=== PATIENT | female | born 1990 | race Two or more races ===

== ENCOUNTER 2018-11-25 17:00 | Emergency (ER) | payer MEDICAID, OTHER ==
[~2018-11-25] VITALS: Ht 165.1 cm; Wt 106.6 kg
[2018-11-25 18:08] LABS: Urine Bacteria NONE SEEN /hpf (None Seen); Urine Blood Negative /uL (Negative); Urine Mucus FEW (None Seen); Urine Specific Gravity 1.024 (1.001-1.035); Urine WBC 2 /hpf (0 - 5)
[2018-11-25 18:45] LABS: Basophils # (auto) 0 uL; Basophils % (auto) 0.5 % (0.0-2.0); Eosinophils # (auto) 0.1 uL; Eosinophils % (auto) 1.1 % (0.0-7.0); Hematocrit 41.2 % (36.0-46.0); Hemoglobin 13.9 g/dL (12.2-16.2); Lymphocytes # (auto) 1.6 uL; Lymphocytes % (auto) 19.4 % (10.0-50.0); Mean Corpuscular Hemoglobin 31.5 pg (28.0-32.0); Mean Corpuscular Hgb Conc. 33.6 g/dL (32.0-36.0); Mean Corpuscular Volume 93.5 fL (80.0-100.0); Monocytes # (auto) 0.4 uL; Monocytes % (auto) 5.2 % (0.0-12.0); Neutrophils # (auto) 6.3 uL; Neutrophils % (auto) 73.8 % (37.0-80.0); Platelet Count (auto) 245 10^3/uL (140-450); Red Blood Cells 4.41 10^6/uL (4.0-5.20); Red Cell Distribution Width 13.4 % (11.8-14.3); White Blood Cell 8.5 10^3/uL (4.4-10.8)
[2018-11-25 19:02] LABS: Albumin 3.3 g/dL (3.4-5.0); Calcium 8.7 mg/dL (8.5-10.1)
[2018-11-25 19:07] LABS: Bilirubin, Total 0.3 mg/dL (0.2-1.0); Total Protein 7.8 g/dL (6.4-8.2)
[2018-11-25] MEDS ORDERED: SODIUM CHLORIDE 0.9% 1,000 ML IV ONE (23:45)
[2018-11-26 01:51] VITALS: BP 126/83
== END 2018-11-26 04:07 | disposition home or self-care (01) ==
LOC: ER 17:07
DX: O99.611 Diseases of the digestive system complicating pregnancy, first trimester (principal); K29.70 Gastritis, unspecified, without bleeding; Z3A.01 Less than 8 weeks gestation of pregnancy
CPT/HCPCS: 36415; 76801; 76817; 80053; 81001; 83690; 84702; 85025; 96360; 99284; J7030

== ENCOUNTER 2019-01-26 14:12 | Emergency (ER) | payer MEDICAID ==
[~2019-01-26] VITALS: Ht 167.6 cm; Wt 99.3 kg
[2019-01-26 14:58] LABS: Urine Bacteria MANY /hpf (None Seen); Urine Blood Negative /uL (Negative); Urine Specific Gravity 1.013 (1.001-1.035); Urine WBC 9 /hpf (0 - 5)
[2019-01-26 17:46] VITALS: BP 117/58
== END 2019-01-26 17:50 | disposition home or self-care (01) ==
LOC: ER 14:12
DX: O23.42 Unspecified infection of urinary tract in pregnancy, second trimester (principal); O21.9 Vomiting of pregnancy, unspecified; Z3A.15 15 weeks gestation of pregnancy
CPT/HCPCS: 36415; 76805; 81001; 81025; 84702

== ENCOUNTER 2019-06-11 14:35 | Observation (INO) | payer MEDICAID ==
[2019-06-11] MEDS ORDERED: PREN-96 PO (17:23)
== END 2019-06-11 17:05 | disposition home or self-care (01) | DRG 566 ==
LOC: LDRP 14:35
PROVIDERS: ADMIT Obstetrics & Gynecology; ATTEND Obstetrics & Gynecology
DX: O36.5991 Maternal care for other known or suspected poor fetal growth, unspecified trimester, fetus 1 (principal); Z3A.35 35 weeks gestation of pregnancy
CPT/HCPCS: 59025; 76818; 81002; G0378

== ENCOUNTER 2019-06-15 11:16 | Observation (INO) | payer MEDICAID ==
[~2019-06-15] VITALS: Ht 167.6 cm; Wt 106.6 kg
[~2019-06-15 11:16] MED LIST: PREN-96 PO
[2019-06-15] MEDS ORDERED: OXYM0.0511 NAS (12:51)
== END 2019-06-15 12:40 | disposition home or self-care (01) | DRG 566 ==
LOC: LDRP 11:16
PROVIDERS: ADMIT Specialist; ATTEND Specialist
DX: O36.5930 Maternal care for other known or suspected poor fetal growth, third trimester, not applicable or unspecified (principal); Z3A.35 35 weeks gestation of pregnancy
CPT/HCPCS: 59025; 76818; 81002; G0378

== ENCOUNTER 2019-06-18 11:28 | Observation (INO) | payer MEDICAID ==
[~2019-06-18] VITALS: Ht 165.1 cm; Wt 104.3 kg
[~2019-06-18 11:28] MED LIST changes: +OXYM0.0511 NAS
== END 2019-06-18 13:40 | disposition home or self-care (01) | DRG 566 ==
LOC: LDRP 11:28
PROVIDERS: ADMIT Obstetrics & Gynecology; ATTEND Obstetrics & Gynecology
DX: O36.5930 Maternal care for other known or suspected poor fetal growth, third trimester, not applicable or unspecified (principal); Z3A.36 36 weeks gestation of pregnancy
CPT/HCPCS: 59025; 76818; 81002; G0378

== ENCOUNTER 2019-06-20 11:15 | Observation (INO) | payer MEDICAID | END 2019-06-20 13:05 | disposition home or self-care (01) | DRG 566 | LOC: LDRP 11:15 | PROVIDERS: ADMIT Specialist; ATTEND Specialist | DX: O36.5930 Maternal care for other known or suspected poor fetal growth, third trimester, not applicable or unspecified (principal); O41.03X0 Oligohydramnios, third trimester, not applicable or unspecified; Z3A.36 36 weeks gestation of pregnancy | CPT/HCPCS: 59025; 76818; 81002; G0378 ==

== ENCOUNTER 2019-06-25 08:25 | Observation (INO) | payer MEDICAID ==
[~2019-06-25] VITALS: Ht 165.1 cm; Wt 108.0 kg
[2019-06-25] MEDS ORDERED: LACTATED RINGER'S 1,000 ML IV ONE (08:31)
[2019-06-25] MEDS ORDERED: BETAMETHASONE ACET (6MG/ML) 5ML VIAL IM SCH (09:00)
== END 2019-06-25 10:40 | disposition home or self-care (01) | DRG 566 ==
LOC: LDRP 08:25
PROVIDERS: ADMIT Obstetrics & Gynecology; ATTEND Obstetrics & Gynecology
DX: O41.03X1 Oligohydramnios, third trimester, fetus 1 (principal); Z3A.37 37 weeks gestation of pregnancy
CPT/HCPCS: 59025; 76815; 81002; 96372; G0378; 96365; 96366

== ENCOUNTER 2020-08-07 11:20 | Observation (INO) | payer MEDICAID ==
[~2020-08-07] VITALS: Ht 167.6 cm; Wt 99.8 kg
== END 2020-08-07 13:00 | disposition home or self-care (01) ==
LOC: LDRP 11:20
PROVIDERS: ADMIT Specialist; ATTEND Specialist
DX: O36.5930 Maternal care for other known or suspected poor fetal growth, third trimester, not applicable or unspecified (principal); Z3A.33 33 weeks gestation of pregnancy
CPT/HCPCS: 59025; 76818; 81002; G0378

== ENCOUNTER 2020-08-11 09:51 | Observation (INO) | payer MEDICAID | END 2020-08-11 11:30 | disposition home or self-care (01) | LOC: LDRP 09:51 | PROVIDERS: ADMIT Specialist; ATTEND Specialist | DX: O36.5930 Maternal care for other known or suspected poor fetal growth, third trimester, not applicable or unspecified (principal); Z3A.33 33 weeks gestation of pregnancy | CPT/HCPCS: 59025; 76818; 81002; G0378 ==

== ENCOUNTER 2020-08-15 09:20 | Observation (INO) | payer MEDICAID | END 2020-08-15 11:15 | disposition home or self-care (01) | LOC: LDRP 09:20 | PROVIDERS: ADMIT Specialist; ATTEND Specialist | DX: O36.5930 Maternal care for other known or suspected poor fetal growth, third trimester, not applicable or unspecified (principal); Z3A.34 34 weeks gestation of pregnancy | CPT/HCPCS: 59025; 76818; 81002; G0378 ==

== ENCOUNTER 2020-08-18 11:07 | Observation (INO) | payer MEDICAID | END 2020-08-18 12:25 | disposition home or self-care (01) | LOC: LDRP 11:07 | PROVIDERS: ADMIT Obstetrics & Gynecology; ATTEND Obstetrics & Gynecology | DX: O36.5930 Maternal care for other known or suspected poor fetal growth, third trimester, not applicable or unspecified (principal); Z3A.34 34 weeks gestation of pregnancy | CPT/HCPCS: 59025; 76818; 81002; G0378 ==

== ENCOUNTER 2020-08-22 11:25 | Observation (INO) | payer MEDICAID | END 2020-08-22 12:45 | disposition home or self-care (01) | LOC: LDRP 11:25 | PROVIDERS: ADMIT Obstetrics & Gynecology; ATTEND Obstetrics & Gynecology | DX: O36.5930 Maternal care for other known or suspected poor fetal growth, third trimester, not applicable or unspecified (principal); Z3A.35 35 weeks gestation of pregnancy | CPT/HCPCS: 59025; 76818; 81002; G0378 ==

== ENCOUNTER 2020-08-25 11:34 | Observation (INO) | payer MEDICAID ==
[~2020-08-25 11:34] MED LIST changes: -OXYM0.0511 NAS
== END 2020-08-25 12:52 | disposition home or self-care (01) ==
LOC: LDRP 11:34
PROVIDERS: ADMIT Specialist; ATTEND Specialist
DX: O36.5930 Maternal care for other known or suspected poor fetal growth, third trimester, not applicable or unspecified (principal); Z3A.35 35 weeks gestation of pregnancy
CPT/HCPCS: 59025; 76818; 81002; G0378

== ENCOUNTER 2020-08-29 11:27 | Observation (INO) | payer MEDICAID ==
[2020-08-29] MEDS ORDERED: URSO300C4 PO (12:50)
[2020-08-29 13:23] LABS: Basophils # (auto) 0 10 ^3/uL (0-0.2); Basophils % (auto) 0.2 % (0.0-2.0); Eosinophils # (auto) 0.1 10 ^3/uL (0-0.8); Eosinophils % (auto) 0.8 % (0.0-7.0); Hematocrit 38.9 % (36.0-46.0); Hemoglobin 13.6 g/dL (12.2-16.2); Lymphocytes # (auto) 1.5 10 ^3/uL (0.4-5.4); Lymphocytes % (auto) 18.4 % (10.0-50.0); Mean Corpuscular Hemoglobin 31.9 pg (28.0-32.0); Mean Corpuscular Hgb Conc. 34.9 g/dL (32.0-36.0); Mean Corpuscular Volume 91.6 fL (80.0-100.0); Monocytes # (auto) 0.5 10 ^3/uL (0-1.3); Monocytes % (auto) 6.7 % (0.0-12.0); Neutrophils % (auto) 73.9 % (37.0-80.0); Nucleated Red Blood Cells % 0.1 %; Platelet Count (auto) 258 10^3/uL (140-450); Red Blood Cells 4.24 10^6/uL (4.0-5.20); Red Cell Distribution Width 14.5 % (11.8-14.3); White Blood Cell 8.1 10^3/uL (4.4-10.8)
[2020-08-29 13:44] LABS: Albumin 2.4 g/dL (3.4-5.0); Calcium 8.7 mg/dL (8.5-10.1); Potassium 4.1 mmol/L (3.5-5.1)
[2020-08-29 13:49] LABS: BUN/Creatinine Ratio 12.1; Bilirubin, Total 0.3 mg/dL (0.2-1.0); Total Protein 7.2 g/dL (6.4-8.2)
== END 2020-08-29 14:22 | disposition home or self-care (01) ==
LOC: LDRP 11:27
PROVIDERS: ADMIT Obstetrics & Gynecology; ATTEND Obstetrics & Gynecology
DX: O36.5930 Maternal care for other known or suspected poor fetal growth, third trimester, not applicable or unspecified (principal); O26.613 Liver and biliary tract disorders in pregnancy, third trimester; K83.1 Obstruction of bile duct; Z3A.36 36 weeks gestation of pregnancy
CPT/HCPCS: 36415; 59025; 76818; 80053; 81002; 85025; G0378

== ENCOUNTER 2020-08-30 12:00 | Observation (INO) | payer MEDICAID ==
[~2020-08-30 12:00] MED LIST changes: +URSO300C4 PO
[2020-08-30] MEDS ORDERED: BETAMETHASONE ACET (6MG/ML) 5ML VIAL IM ONE (12:30)
== END 2020-08-30 13:57 | disposition home or self-care (01) ==
LOC: LDRP 12:00
PROVIDERS: ADMIT Obstetrics & Gynecology; ATTEND Obstetrics & Gynecology
DX: O26.613 Liver and biliary tract disorders in pregnancy, third trimester (principal); K83.1 Obstruction of bile duct; Z3A.36 36 weeks gestation of pregnancy
CPT/HCPCS: G0378; J0702; 59025; 81002; 96372

== ENCOUNTER 2020-08-31 11:51 | Observation (INO) | payer MEDICAID ==
[~2020-08-31] VITALS: Ht 167.6 cm; Wt 113.4 kg
[2020-08-31] MEDS ORDERED: BETAMETHASONE ACET (30mg/5ml) 5ml Vial 6mg/ml IM SCH (12:30)
[2020-08-31] MEDS ORDERED: BETAMETHASONE ACET (30mg/5ml) 5ml Vial 6mg/ml IM ONE (13:30)
== END 2020-08-31 13:52 | disposition home or self-care (01) ==
LOC: LDRP 11:51
PROVIDERS: ADMIT Obstetrics & Gynecology; ATTEND Obstetrics & Gynecology
DX: O26.613 Liver and biliary tract disorders in pregnancy, third trimester (principal); K83.1 Obstruction of bile duct; O36.5930 Maternal care for other known or suspected poor fetal growth, third trimester, not applicable or unspecified; Z3A.36 36 weeks gestation of pregnancy
CPT/HCPCS: 59025; 76818; 81002; 96372; G0378; J0702

== ENCOUNTER 2020-09-04 07:22 | Inpatient (IN) | payer MEDICAID ==
[~2020-09-04] VITALS: Ht 167.6 cm; Wt 113.4 kg
[2020-09-04] MEDS ORDERED: WITCH HAZEL-GLYCERIN PAD TOP PRN (07:45)
[2020-09-04] MEDS ORDERED: DERMOPLAST 60ML BOTTLE TOP PRN (07:45)
[2020-09-04] MEDS ORDERED: PHISODERM TOP SOLN 240ML BTL TOP PRN (07:45)
[2020-09-04] MEDS ORDERED: PENICILLIN G POT 5MIL/D5 50ML 50 ML IV ONE (08:30)
[2020-09-04 08:42] LABS: Basophils # (auto) 0 10 ^3/uL (0-0.2); Basophils % (auto) 0.5 % (0.0-2.0); Eosinophils # (auto) 0.1 10 ^3/uL (0-0.8); Eosinophils % (auto) 0.8 % (0.0-7.0); Hemoglobin 13.8 g/dL (12.2-16.2); Lymphocytes # (auto) 1.9 10 ^3/uL (0.4-5.4); Lymphocytes % (auto) 20.6 % (10.0-50.0); Mean Corpuscular Hgb Conc. 33.7 g/dL (32.0-36.0); Mean Corpuscular Volume 92.2 fL (80.0-100.0); Monocytes # (auto) 0.7 10 ^3/uL (0-1.3); Monocytes % (auto) 7.6 % (0.0-12.0); Neutrophils # (auto) 6.6 10 ^3/uL (1.6-8.6); Neutrophils % (auto) 70.5 % (37.0-80.0); Nucleated Red Blood Cells % 0.1 %; Platelet Count (auto) 288 10^3/uL (140-450); Red Blood Cells 4.44 10^6/uL (4.0-5.20); Red Cell Distribution Width 14.5 % (11.8-14.3); White Blood Cell 9.3 10^3/uL (4.4-10.8)
[2020-09-04] MEDS: LACTATED RINGER'S 1,000 ML IV SCH (08:44)
[2020-09-04 08:53] LABS: Urine Bacteria FEW /hpf (None Seen); Urine Blood Negative /uL (Negative); Urine Specific Gravity 1.015 (1.001-1.035); Urine WBC 153 /hpf (0 - 5)
[2020-09-04 08:59] LABS: INR 0.91 (0.9-1.15); Partial Thromboplastin Time 23.4 sec (23.0-31.2)
[2020-09-04 09:00] LABS: Amphetamine Screen, Urine NEGATIVE (NEGATIVE); Barbiturate Scree,Urine NEGATIVE (NEGATIVE); Benzodiazephine Screen, Urine NEGATIVE (NEGATIVE); Cannabinoid Screen, Urine NEGATIVE (NEGATIVE); Cocaine Screen, Urine NEGATIVE (NEGATIVE); Opiate Scree,Urine NEGATIVE (NEGATIVE); Phencyclidine Screen, Urine NEGATIVE (NEGATIVE)
[2020-09-04] MEDS ORDERED: miSOPROStol 100 mcg TAB PR PRN (09:00)
[2020-09-04] MEDS ORDERED: ONDANSETRON HCL 4 MG/2 ML VIAL IV PRN (09:00)
[2020-09-04] MEDS ORDERED: CARBOPROST TROMETHAMINE 250 MCG/1ML VIAL IM PRN (09:00)
[2020-09-04] MEDS ORDERED: METHYLERGONOVINE MALEATE 0.2 MG/ML AMP IM PRN (09:00)
[2020-09-04] MEDS ORDERED: miSOPROStol 100 mcg TAB SL PRN (09:00)
[2020-09-04] MEDS: miSOPROStol 50 MCG per PRE-CUT 1/2 TAB PO PRN ×3 (09:18→20:05)
[2020-09-04 09:19] LABS: Albumin 2.6 g/dL (3.4-5.0); Calcium 8.5 mg/dL (8.5-10.1); Potassium 3.7 mmol/L (3.5-5.1)
[2020-09-04 09:22] LABS: BUN/Creatinine Ratio 21.6; Bilirubin, Total 0.3 mg/dL (0.2-1.0); Total Protein 7.4 g/dL (6.4-8.2); Uric Acid 5.1 mg/dL (2.6-6.0)
[2020-09-04] MEDS: DIPHENOXYLATE W/ATROPINE 2.5 MG TAB PO SCH ×2 (10:00→22:00)
[2020-09-04] MEDS: PENICILLIN G POTASSIUM 2,500,000 UNITS in D5W 5% 50 ML IV SCH ×2 (14:06→18:12)
[2020-09-05] MEDS: miSOPROStol 50 MCG per PRE-CUT 1/2 TAB PO PRN (00:18)
[2020-09-05] MEDS: PENICILLIN G POTASSIUM 2,500,000 UNITS in D5W 5% 50 ML IV SCH ×2 (02:33→07:04)
[2020-09-05] MEDS: LACTATED RINGER'S 1,000 ML IV SCH (02:49)
[2020-09-05] MEDS ORDERED: BUTORPHANOL TARTRATE 2 MG/1 ML VIAL IV PRN ×2 (04:45)
[2020-09-05] MEDS ORDERED: PROMETHAZINE HCL 25 MG/ML 1ML IM PRN (04:45)
[2020-09-05] MEDS ORDERED: LACT. RINGERS/OXYTOCIN 20UNITS 1,000 ML IV ONE ×2 (06:50→08:15)
[2020-09-05] MEDS ORDERED: ePHEDrine SULFATE 50 MG/ML AMP IV ONE ×2 (07:15→08:15)
[2020-09-05] MEDS ORDERED: ROPIVACAINE HCL 200 ML EPI SCH ×2 (07:15→08:15)
[2020-09-05] MEDS ORDERED: NALOXONE HCL 0.4 MG/ML VIAL IV ONE ×2 (07:15→08:15)
[2020-09-05] MEDS ORDERED: fentaNYL CITRATE 100 MCG/2 ML VL IV ONE ×2 (07:15→08:15)
[2020-09-05] MEDS ORDERED: LIDOCAINE HCL 2 %PF INJ 10ML AMP IJ ONE ×2 (07:15→08:15)
[2020-09-05] MEDS ORDERED: LIDOCAINE 2%HCL (LOCAL ANESTH.) INJ 20ML MDV ONE (08:08)
[2020-09-05] MEDS ORDERED: LACT. RINGERS/OXYTOCIN 20UNITS 1,000 ML IV SCH (08:15)
[2020-09-05] MEDS ORDERED: LACTATED RINGER'S 1,000 ML IV ONE (08:15)
[2020-09-05] MEDS ORDERED: LIDOCAINE 2%HCL (LOCAL ANESTH.) INJ 20ML MDV IJ PRN (08:15)
[2020-09-05] MEDS ORDERED: IBUPROFEN 600 MG TAB PO PRN (10:15)
[2020-09-05] MEDS ORDERED: AMMONIA 0.33 ML INHALANT IN ONE (12:42)
[2020-09-05 14:00] VITALS: BP 106/65
[2020-09-05 15:00] VITALS: BP 113/58
[2020-09-05 18:45] VITALS: BP 112/56
[2020-09-05 22:40] VITALS: BP 97/52
[2020-09-06 02:47] VITALS: BP 116/68
[2020-09-06 07:00] VITALS: BP 92/51
[2020-09-06 08:06] LABS: RPR Non Reactive (Non Reactive)
[2020-09-06 11:00] VITALS: BP 110/62
== END 2020-09-06 13:00 | disposition home or self-care (01) | DRG 560 ==
LOC: LDRP 07:22
PROVIDERS: ADMIT Specialist; ATTEND Specialist
PROC: 10E0XZZ Delivery of Products of Conception, External Approach (ICD-10-PCS; principal; 2020-09-05)
PROC: 3E0R3BZ Introduction of Anesthetic Agent into Spinal Canal, Percutaneous Approach (ICD-10-PCS; 2020-09-05)
PROC: 00HU33Z Insertion of Infusion Device into Spinal Canal, Percutaneous Approach (ICD-10-PCS; 2020-09-05)
DX: O26.62 Liver and biliary tract disorders in childbirth (principal); K83.1 Obstruction of bile duct; Z20.822 Contact with and (suspected) exposure to COVID-19; O99.824 Streptococcus B carrier state complicating childbirth; Z3A.37 37 weeks gestation of pregnancy; Z37.0 Single live birth
CPT/HCPCS: 36415; 59025; 59409; 80053; 80307; 81001; 81002; 84112; 84550; 85025; 85610; 85730; 86592; 86762; 86850; 86900; 86901; 87426; 96360; 96361; 96365; 96374; G0378; J2540; J2590; J7060